=== PATIENT | female | born 2000 | race Caucasian/White ===

== ENCOUNTER 2019-04-18 12:26 | Emergency (ER) | payer OTHER ==
[2019-04-18 12:59] VITALS: BP 140/80
--- NOTE | 2019-04-18 13:00 | UC ---
Ear Complaint HPI - HPI Summary HPI Summary: 18 yo female presents with RIGHT ear pain. She tells me that for the past week she has had intermittent right ear pain that feels like a "thumping". Pops at times when she yawns or opens her mouth. She has not taken anything OTC for her symptoms. Denies fever, chills, sinus symptoms, sore throat, cough. - History of Current Complaint Chief Complaint: UCEar Stated Complaint: EAR PAIN Time Seen by Provider: 04/18/19 12:57 Hx Obtained From: Patient Onset/Duration: Gradual Onset Severity Initially: Mild Severity Currently: Mild Pain Intensity: 3 Pain Scale Used: 0-10 Numeric - Allergies/Home Medications Allergies/Adverse Reactions: Allergies Allergy/AdvReac Type Severity Reaction Status Date / Time No Known Allergies Allergy Verified 04/18/19 12:59 PMH/Surg Hx/FS Hx/Imm Hx - Additional Past Medical History Additional PMH: None - Surgical History Surgical History: Yes Surgery Procedure, Year, and Place: Ureter dilation - Family History Known Family History: Positive: Non-Contributory - Social History Occupation: Employed Full-time Lives: Alone Alcohol Use: Occasionally Substance Use Type: None Smoking Status (MU): Never Smoked Tobacco Review of Systems All Other Systems Reviewed And Are Negative: No Constitutional: Positive: Negative Skin: Positive: Negative Eyes: Positive: Negative ENT: Positive: Ear Ache Respiratory: Positive: Negative Cardiovascular: Positive: Negative Neurovascular: Positive: Negative Neurological: Positive: Negative Psychological: Positive: Negative Physical Exam - Summary Physical Exam Summary: GENERAL: NAD. WDWN. No pain distress. SKIN: No rashes, sores, lesions, or open wounds. HEENT: Head: AT/NC Eyes: EOM intact. Conjunctiva clear without inflammation or discharge. Ears: Hearing grossly normal. RIGHT EAR: canal with mild erythema and edema - no drainage. Dry flaky cerumen. TM with clear fluid behind. No injection. LEFT TM WNL Nose: Nasal mucosa pink and moist. NTTP maxillary and frontal sinus. Throat: Posterior oropharynx without exudates, erythema, or tonsillar enlargement. Uvula midline. NECK: Supple. Nontender. No lymphadenopathy. CHEST: CTAB. No r/r/w. No accessory muscle use. Breathing comfortably and in no distress. CV: RRR. Without m/r/g. Pulses intact. NEURO: Alert. PSYCH: Age appropriate behavior. Triage Information Reviewed: Yes Vital Signs: Vital Signs: Temp Pulse Resp BP Pulse Ox 97.9 F 102 18 140/80 99 04/18/19 12:56 04/18/19 12:56 04/18/19 12:56 04/18/19 12:56 04/18/19 12:56 Vital Signs Reviewed: Yes Ear Complaint Course/Dx - Course Course Of Treatment: Serous otitis media - Differential Dx/Diagnosis Provider Diagnosis: Serous otitis media Discharge ED - Sign-Out/Discharge Documenting (check all that apply): Patient Departure All imaging exams completed and their final reports reviewed: No Studies - Discharge Plan Condition: Stable Disposition: HOME Prescriptions: Loratadine [Claritin] 10 mg PO DAILY #30 tab.rapdis Neomyc/Polym/HC 1% OTIC SUSP* [Cortisporin Otic Susp 1%*] 4 drop RIGHT EAR BID # 1 btl Patient Education Materials: Serous Otitis Media (ED) Referrals: No Primary Care Phys,NOPCP [Primary Care Provider] - Additional Instructions: If you develop a fever, shortness of breath, chest pain, new or worsening symptoms - please call your PCP or go to the ED immediately. - Billing Disposition and Condition Condition: STABLE Disposition: Home - Attestation Statements Provider Attestation: Per institutional requirements, I have reviewed the chart, however, I was not consulted specifically or made aware of this patient by the midlevel provider. I did not personally evaluate, interact with , or disposition this patient.
== END 2019-04-18 13:13 | disposition home or self-care (01) ==
LOC: UCEAST 12:26
DX: H65.91 Unspecified nonsuppurative otitis media, right ear (principal)
CPT/HCPCS: 99202; G0463

== ENCOUNTER 2019-08-29 15:02 | Emergency (ER) | payer BC, OTHER ==
[2019-08-29 15:13] VITALS: BP 131/78
--- NOTE | 2019-08-29 15:42 | UC ---
Throat Pain/Nasal Silver HPI - HPI Summary HPI Summary: 18 y/o female presents to the urgent care c/o URI symptoms for the past week w/ nasal congestion and sinus pain and pressure. Pt has been taken Nyquill PO to alleviate symptoms w/o any improvement. Pt started to experience B/l ear pressure 3 days ago. Yesterday w/ RT ear pain and fever of 101.4F associated w / a lot of pressure. Pain is 6/10 today associated w/ yellowish PND and dry cough. Pt denies dizziness, SOB, chest pain,abdominal pain, N/V/d. - History of Current Complaint Chief Complaint: UCEar Stated Complaint: HEAD COLD/SINUS /EAR PRESSURE Time Seen by Provider: 08/29/19 15:28 Hx Obtained From: Patient Onset/Duration: Gradual Onset, Lasting Weeks - 1 week of URI symptoms, Still Present, Worse Since - 2 days w/ RT ear pain Severity: Moderate Pain Intensity: 6 - Rt ear pain and sinues pain Pain Scale Used: 0-10 Numeric Cough: Nonproductive Associated Signs & Symptoms: Positive: Sinus Discomfort, Nasal Discharge - yellowish, Fever. Negative: Dysphagia, Wheezing, Vomiting - Epiglottits Risk Factors Epiglottis Risk Factors: Negative - Allergies/Home Medications Allergies/Adverse Reactions: Allergies Allergy/AdvReac Type Severity Reaction Status Date / Time No Known Allergies Allergy Verified 08/29/19 15:13 PMH/Surg Hx/FS Hx/Imm Hx Previously Healthy: Yes Respiratory History: Asthma - controlled - Surgical History Surgical History: Yes Surgery Procedure, Year, and Place: Ureter dilation - Family History Known Family History: Positive: None - Pt denies PMHX, Non-Contributory - Social History Occupation: Student Lives: With Family Alcohol Use: None Substance Use Type: None Smoking Status (MU): Never Smoked Tobacco - Immunization History Vaccination Up to Date: Yes Review of Systems All Other Systems Reviewed And Are Negative: Yes Constitutional: Positive: Fever Skin: Positive: Negative Eyes: Positive: Negative ENT: Positive: Ear Ache - RT ear pain, Nasal Discharge - yellowish, Sinus Congestion, Sinus Pain/Tenderness, Other - Yellowish PND Respiratory: Positive: Cough - dry Cardiovascular: Positive: Negative Gastrointestinal: Positive: Negative Genitourinary: Positive: Negative Motor: Positive: Negative Neurovascular: Positive: Negative Musculoskeletal: Positive: Negative Neurological: Positive: Headache Psychological: Positive: Negative Is Patient Immunocompromised?: No Physical Exam - Summary Physical Exam Summary: Vitals: reviewed General: Well developed, well-nourished obese female patient with NAD. Head and face: Normocephalic and atraumatic, Positive tenderness over the frontal and maxillary sinuses.. Eyes: PERRLA, EOMI x 2. Normal conjunctiva. No eye discharge. ENT: B/L external ear canals clear, RT TM injected w/ erythema and mild yellowish discharge, no perforation. Nose: edematous and erythematous nasal mucosa with with yellowish discharge and erythematous mucosa. Pharynx with erythema, no exudate. Yellowish PND Neck: Supple, no JVD, no carotid bruits and no lymphadenopathy. Lungs: clear, no rales, no rhonchi, no wheezes. CVS: RRR, S1 and S2 present no murmurs or gallops appreciated. Abdomen: soft nontender with positive bowel sounds. Extremities: no edema noted. Neuro: WNL. Skin: warm and dry Triage Information Reviewed: Yes Vital Signs: Initial Vital Signs Temp 98.2 F 08/29/19 15:10 Pulse 108 08/29/19 15:10 Resp 18 08/29/19 15:10 BP 131/78 08/29/19 15:10 Pulse Ox 99 08/29/19 15:10 Throat Pain/Nasal Course/Dx - Course Course Of Treatment: 18 y/o female presents to the urgent care c/o URI symptoms for the past week w/ nasal congestion and sinus pain and pressure. Pt has been taken Nyquill PO to alleviate symptoms w/o any improvement. Pt started to experience B/l ear pressure 3 days ago. Yesterday w/ RT ear pain and fever of 101.4F associated w / a lot of pressure. Pain is 6/10 today associated w/ yellowish PND and dry cough. Pt denies dizziness, SOB, chest pain,abdominal pain, N/V/d. Hx obtained. pt w/ RT otitis media and acute bacterial sinusitis on examination. Pt Rx Amoxicillin PO and flonase nasal spray. Advised to continue Ibuprofen PO to alleviate otalgia dn fever. Discharge instructions explained to Pt. Advised to Return to the clinic or PCP if symptoms do not improve.Pt understood and agreed with plan of care. - Differential Dx/Diagnosis Differential Diagnosis/HQI/PQRI: Influenza, Laryngitis, Sinusitis, URI, Other - otitis media or externa Provider Diagnosis: Right otitis media, Acute bacterial sinusitis Discharge ED - Sign-Out/Discharge Documenting (check all that apply): Patient Departure - D/C home All imaging exams completed and their final reports reviewed: No Studies - Discharge Plan Condition: Stable Disposition: HOME Prescriptions: Amoxicillin PO (*) [Amoxicillin 875 MG (*)] 875 mg PO BID #20 tab Fluticasone NASAL SPRAY 50MCG* [Flonase NASAL SPRAY 50MCG*] 2 spray BOTH NARES DAILY #1 btl Patient Education Materials: Sinusitis (ED), Ear Infection (ED) Forms: *Work Release Referrals: [facility] [place] [facility] [place]] - 3 Days Additional Instructions: 1- Please increase fluid intake and rest. take full course of antibiotics to avoid resistance. Take yogurts w/ probiotics or Culturelle to protect your GI system 2-Use Flonase as directed to help drain fluid. Also buy saline drops to clear sinuses 3-Take Ibuprofen PO q6-8hrs prn after meals to alleviate pain. 4-Please f/u w/ your PCP in 3 days if symptoms do not improve for further management and treatment - Billing Disposition and Condition Condition: STABLE Disposition: Home
== END 2019-08-29 16:04 | disposition home or self-care (01) ==
LOC: UCCORT 15:02
DX: H66.91 Otitis media, unspecified, right ear (principal); J01.90 Acute sinusitis, unspecified; B96.89 Other specified bacterial agents as the cause of diseases classified elsewhere; J45.909 Unspecified asthma, uncomplicated
CPT/HCPCS: 99212; G0463

== ENCOUNTER 2019-09-06 12:50 | Emergency (ER) | payer BC ==
[2019-09-06 13:46] VITALS: BP 124/71
== END 2019-09-06 14:20 | disposition left against medical advice (07) ==
LOC: UCEAST 12:50
DX: Z53.21 Procedure and treatment not carried out due to patient leaving prior to being seen by health care provider (principal)

== ENCOUNTER 2019-09-06 14:16 | Emergency (ER) | payer BC ==
--- NOTE | 2019-09-06 14:57 | UC ---
Skin Complaint HPI - HPI Summary HPI Summary: 18 yo female presents with rash. She tells me that she started amoxicillin on for b/l ear infection. Last night started developing a b/l arm and torso red and itchy rash. She took benadryl and rash has faded a little. She has not taken her amoxicillin today as she is concerned it is due to that. She has had PCN in the past without issue. Denies fever, throat or facial swelling, SOB, cough/wheezing. - History of Current Complaint Time Seen by Provider: 09/06/19 14:56 Stated Complaint: RASH Hx Obtained From: Patient Hx Last Menstrual Period: depo Onset/Duration: Sudden Onset Onset Severity: Mild Current Severity: Mild Pain Intensity: 3 Pain Scale Used: 0-10 Numeric - Allergy/Home Medications Allergies/Adverse Reactions: Allergies Allergy/AdvReac Type Severity Reaction Status Date / Time amoxicillin Allergy Hives Verified 09/06/19 14:59 Penicillins Allergy Hives Verified 09/06/19 14:59 Home Medications: Home Medications Amoxicillin PO (*) [Amoxicillin 875 MG (*)] 1 tab PO BID 09/06/19 [History Confirmed 09/06/19] PMH/Surg Hx/FS Hx/Imm Hx - Additional Past Medical History Additional PMH: None - Surgical History Surgical History: Yes Surgery Procedure, Year, and Place: Ureter dilation - Family History Known Family History: Positive: None - Social History Occupation: Student Lives: With Family Alcohol Use: None Substance Use Type: None Smoking Status (MU): Never Smoked Tobacco - Immunization History Vaccination Up to Date: Yes Review of Systems All Other Systems Reviewed And Are Negative: No Constitutional: Positive: Negative Skin: Positive: Rash Eyes: Positive: Negative ENT: Positive: Negative Respiratory: Positive: Negative Cardiovascular: Positive: Negative Neurological: Positive: Negative Psychological: Positive: Negative Physical Exam - Summary Physical Exam Summary: GENERAL: NAD. WDWN. No distress. SKIN: Torso and b/l arms and legs with scattered faint erythematous flat [place]- type rash. NTTP. Itchy. No open wound. HEENT: No periorbital, lip, or other facial edema. Airway patent without oropharyngeal edema. NECK: Supple. Nontender. No lymphadenopathy. CHEST: CTAB. No wheezing. No accessory muscle use. Breathing comfortably and in no distress. CV: RRR. Pulses intact. Cap refill <2seconds NEURO: Alert. PSYCH: Age appropriate behavior. Triage Information Reviewed: Yes Vital Signs: Vital Signs: Temp Pulse Resp BP Pulse Ox 98.1 F 90 18 135/72 100 09/06/19 14:59 09/06/19 14:59 09/06/19 14:59 09/06/19 14:59 09/06/19 14:59 Vital Signs Reviewed: Yes Course/Dx - Course Course Of Treatment: Suspect reaction to PCN. Pt was given 60mg prednisone in the clinic and advised to take daily benadryl. Rx for prednisone taper Stop taking amoxicillin - consider allergic to PCN at this time. - Diagnoses Provider Diagnosis: Adverse reaction to antibiotic Discharge ED - Sign-Out/Discharge Documenting (check all that apply): Patient Departure All imaging exams completed and their final reports reviewed: No Studies - Discharge Plan Condition: Stable Disposition: HOME Prescriptions: predniSONE 20 mg TAB [Deltasone 20 MG TAB*] 20 mg PO DAILY #12 tab Patient Education Materials: Antibiotic Medication Allergy (ED) Referrals: No Primary Care Phys,NOPCP [Primary Care Provider] - Additional Instructions: - Take prednisone exactly as prescribed until gone - starting tomorrow - Okay to take Benadryl 25mg every 6 hours as needed for itching and hives. This medication may cause drowsiness - do NOT drive, operate machinery or drink alcohol while taking Benadryl -Avoid getting over-heated (hot showers, hot tubs, exercise) for at least 48 hours - Try to avoid aspirin, NSAIDs (Motrin, Aleve, Naprosyn) for 2-3 days - Okay to apply cool compresses to the area of injury -Contact your doctor or return here with questions or concerns CONSIDER YOURSELF ALLERGIC TO PENICILLIN - RASH - Billing Disposition and Condition Condition: STABLE Disposition: Home
[2019-09-06 15:04] VITALS: BP 135/72
== END 2019-09-06 15:09 | disposition home or self-care (01) ==
LOC: UCCORT 14:16
DX: L25.8 Unspecified contact dermatitis due to other agents (principal); T36.0X5A Adverse effect of penicillins, initial encounter; Y92.9 Unspecified place or not applicable
CPT/HCPCS: 99212; G0463; J7512